=== PATIENT | male | born 1990 | race Caucasian/White ===

== ENCOUNTER 2017-06-20 13:31 | Day surgery (SDC) | payer OTHER ==
[2017-06-20] VITALS (10 sets, daily range): BP systolic 98–141; BP diastolic 42–80; PULSE 16–110; TEMP 98.4–99.3
[~2017-06-20] VITALS: Ht 182.9 cm; Wt 109.1 kg
[2017-06-20] MEDS ORDERED: NORCO 325 MG-51 TAB PO (13:42)
[2017-06-20] MEDS ORDERED: FIBER GUMMIES2.5 GM PO (13:43)
[2017-06-21 02:30] VITALS: BP 107/55; PULSE 86; TEMP 98.2
[2017-06-21 05:19] VITALS: BP 113/42; PULSE 67; TEMP 97.8
[2017-06-21] MEDS ORDERED: NORCO 325 MG-51 TAB PO (07:37)
[2017-06-21 09:15] VITALS: BP 120/71; PULSE 87; TEMP 98.7
== END 2017-06-21 10:00 | disposition home or self-care (01) ==
LOC: SURG 13:31 → SDCO 13:31 → SURG 17:55 → SDCO 06-21 10:00
DX: K35.80 Unspecified acute appendicitis (principal)
CPT/HCPCS: OP; J1100; J1170; J1885; J2405; J2704; J2765; J3010; J7120